=== PATIENT | female | born 1995 | race Caucasian/White ===

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

== ENCOUNTER 2017-05-16 00:20 | Emergency (ER) | payer BC ==
[~2017-05-16] VITALS: Ht 165.1 cm; Wt 47.0 kg
[2017-05-16 00:24] VITALS: TEMP 36.7; Ht 165.1 cm; Wt 47.0 kg
[2017-05-16] MEDS ORDERED: MoRPHine SULFATE 4 MG/ML 1 ML CARP\\VIAL IV ONE (01:00)
[2017-05-16 01:20] LABS: BASO % 0.4 %; BASO ABS # 0.04 K/uL (0-0.2); COMPLETE YES; EOS % 1.5 %; HEMATOCRIT 36.7 % (37-47); IG% 0.1 %; LYMPH % 27.7 %; LYMPH ABS # 2.65 K/uL (1.2-3.4); MEAN CELL VOLUME 78.9 fL (80-100); MEAN CORPUSCULAR HEMOGLOBIN 26.5 pg (25-34); MEAN CORPUSCULAR HGB CONC 33.5 g/dl (32-36); MEAN PLATELET VOLUME 9.7 fL (7.4-10.4); MONO % 8.2 %; NEUT % 62.1 %; PLATELET COUNT 217 K/uL (130-400); RED BLOOD COUNT 4.65 M/uL (4.2-5.4); WHITE BLOOD COUNT 9.56 K/uL (4.8-10.8)
[2017-05-16] MEDS: ONDANSETRON INJ 2 MG/ML 2 ML VIAL IV STA ×2 (01:28→01:32)
[2017-05-16 01:35] LABS: URINE APPEARANCE CLEAR (CLEAR); URINE BILIRUBIN NEG (NEG); URINE COLOR YELLOW; URINE NITRITE NEG (NEG); URINE SPECIFIC GRAVITY 1.008 (1.000-1.030); UROBILINOGEN NEG (NEG); ZZUR CULT IF INDIC CLEAN CATCH NO
[2017-05-16 01:37] LABS: BUN/CREATININE RATIO 12.5 (10-20); CALCIUM 8.9 mg/dl (8.5-10.1); CREATININE 0.68 mg/dl (0.60-1.20); POTASSIUM 3.6 mmol/L (3.5-5.1)
[2017-05-16 01:38] LABS: MANUAL MICROSCOPIC REQUIRED? NO; REVIEW REQ? NO
[2017-05-16 01:40] LABS: ALB/GLOB RATIO 1.2 (0.9-2)
[2017-05-16] MEDS ORDERED: MAGNESIUM CITRATE 296 ML/BTL PO ONE (04:15)
[2017-05-16 04:23] VITALS: BP 107/84; PULSE 69; O2SAT 96
--- NOTE | 2017-05-16 07:01 | DIAGNOSTIC IMAGING REPORT ---
ABDOMEN 2VIEW W/PA CHEST RTN HISTORY: 22 years-old Female Left side abd pain acute left-sided abdominal pain COMPARISON: None available TECHNIQUE: PA view of the chest with erect and supine views of the abdomen FINDINGS: Cardiomediastinal and hilar silhouettes are within normal limits. There is no pneumothorax, pleural effusion, focal airspace consolidation or overt pulmonary edema. The bones of the chest are grossly intact. No pneumoperitoneum on the upright projection. The bowel gas pattern is nonobstructive. Mild/moderate stool volume throughout the colon. No urolith or organomegaly. Bones of the abdomen appear unremarkable and intact. IMPRESSION: Unremarkable acute abdominal series radiographs. The above report was generated using voice recognition software. It may contain grammatical, syntax or spelling errors. Electronically signed by: Joel Smith M.D. 05/16/2017 7:00 AM Dictated Date/Time: 05/16/2017 6:58 AM
--- NOTE | 2017-05-16 07:03 | DIAGNOSTIC IMAGING REPORT ---
PELVIC ULTRASOUND CLINICAL HISTORY: Left lower quadrant abdominal pain. COMPARISON STUDY: Pelvic ultrasound March 20, 2016. TECHNIQUE: Transabdominal sonography of the pelvis was performed. Transvaginal imaging was deferred in this patient. FINDINGS: The uterus measures 6.7 x 2.8 x 3.5 cm. Endometrium measures 5 mm in thickness. The right ovary measures 3 x 1.5 x 2.4 cm and the left measures 2.9 x 1.7 x 2.5 cm. Color flow is identified within each ovary. There was no free fluid. IMPRESSION: Normal transabdominal pelvic ultrasound. Electronically signed by: Madi Colby M.D. 05/16/2017 7:02 AM Dictated Date/Time: 05/16/2017 7:00 AM
--- NOTE | 2017-05-16 22:26 | EMERGENCY ROOM VISIT NOTE ---
History First contact with patient: 00:40 Chief Complaint: OTHER COMPLAINT Stated Complaint: VAGINAL PAIN,DIZZINESS,NAUSEA History of Present Illness The patient is a 22 year old female who presents to the Emergency Room with complaints of left-sided abdominal and lower pelvic pain this slowly been worsening over the past 3-4 days. The patient does not have a history of abdominal surgery. She is not sexually active. She has been eating and drinking as normal. No fever or chills. Her discomfort may worsen slightly after eating does not radiate. She has had small bowel movements. No dysuria. The patient has not had similar symptoms in the past and rates her current discomfort a 5/10. She denies chance of . Review of Systems More than 10 systems were reviewed and otherwise negative with the exception of history of present illness. Past Medical/Surgical History Medical Problems: (1) Irregular periods/menstrual cycles Family History No pertinent family history Social History Smoking Status: Never Smoker Alcohol Use: none Drug Use: none Marital Status: single Housing Status: lives with roommate Occupation Status: [employer] Current/Historical Medications No Active Prescriptions or Reported Meds Physical Exam Vital Signs Date Time Temp Pulse Resp B/P (MAP) Pulse Ox O2 Delivery O2 Flow Rate FiO2 05/16/17 04:23 69 18 107/84 96 Room Air 05/16/17 02:22 44 18 112/79 100 Room Air 05/16/17 01:28 51 16 104/54 100 Room Air 05/16/17 00:24 36.7 63 18 113/75 99 Room Air Physical Exam VITALS: Vitals are noted on the nurse's note and reviewed by myself. Vital signs stable. GENERAL: Well-developed, well-nourished, female, who is in no acute distress and resting comfortably. Patient is cooperative with the examination. NECK: Supple without nuchal rigidity. No lymphadenopathy. No thyromegaly. Cervical spine is nontender. HEART: Regular rate and rhythm without murmurs gallops or rubs. LUNGS: Clear to auscultation bilaterally without wheezes, rales or rhonchi. No retractions or accessory muscle use. ABDOMEN: Positive normal bowel sounds x 4. Soft with mild left-sided abdominal tenderness MUSCULOSKELETAL: No muscle atrophy, erythema, or edema noted. Full range of motion without joint tenderness in all extremities. Medical Decision & Procedures ER Provider Diagnostic Interpretation: PELVIC ULTRASOUND CLINICAL HISTORY: Left lower quadrant abdominal pain. COMPARISON STUDY: Pelvic ultrasound March 20, 2016. TECHNIQUE: Transabdominal sonography of the pelvis was performed. Transvaginal imaging was deferred in this patient. FINDINGS: The uterus measures 6.7 x 2.8 x 3.5 cm. Endometrium measures 5 mm in thickness. The right ovary measures 3 x 1.5 x 2.4 cm and the left measures 2.9 x 1.7 x 2.5 cm. Color flow is identified within each ovary. There was no free fluid. IMPRESSION: Normal transabdominal pelvic ultrasound. ABDOMEN 2VIEW W/PA CHEST RTN HISTORY: 22 years-old Female Left side abd pain acute left-sided abdominal pain COMPARISON: None available TECHNIQUE: PA view of the chest with erect and supine views of the abdomen FINDINGS: Cardiomediastinal and hilar silhouettes are within normal limits. There is no pneumothorax, pleural effusion, focal airspace consolidation or overt pulmonary edema. The bones of the chest are grossly intact. No pneumoperitoneum on the upright projection. The bowel gas pattern is nonobstructive. Mild/moderate stool volume throughout the colon. No urolith or organomegaly. Bones of the abdomen appear unremarkable and intact. IMPRESSION: Unremarkable acute abdominal series radiographs. Laboratory Results 05/16/17 01:00 Red Blood Count 4.65, Mean Corpuscular Volume 78.9, Mean Corpuscular Hemoglobin 26.5, Mean Corpuscular Hemoglobin Concent 33.5, Mean Platelet Volume 9.7, Neutrophils (%) (Auto) 62.1, Lymphocytes (%) (Auto) 27.7, Monocytes (%) (Auto) 8.2, Eosinophils (%) (Auto) 1.5, Basophils (%) (Auto) 0.4, Neutrophils # (Auto) 5.94, Lymphocytes # (Auto) 2.65, Monocytes # (Auto) 0.78, Eosinophils # (Auto) 0.14, Basophils # (Auto) 0.04 05/16/17 01:00 Test 05/16/17 00:30 05/16/17 01:00 Urine Color YELLOW Urine Appearance CLEAR (CLEAR) Urine pH 7.0 (4.5-7.5) Urine Specific [place] 1.008 (1.000-1.030) Urine Protein NEG (NEG) Urine Glucose (UA) NEG (NEG) Urine Ketones NEG (NEG) Urine Occult Blood NEG (NEG) Urine Nitrite NEG (NEG) Urine Bilirubin NEG (NEG) Urine Urobilinogen NEG (NEG) Urine Leukocyte Esterase NEG (NEG) Urine Test NEG (NEG) White Blood Count 9.56 K/uL (4.8-10.8) Red Blood Count 4.65 M/uL (4.2-5.4) Hemoglobin 12.3 g/dL (12.0-16.0) Hematocrit 36.7 % (37-47) Mean Corpuscular Volume 78.9 fL (80-100) Mean Corpuscular Hemoglobin 26.5 pg (25-34) Mean Corpuscular Hemoglobin Concent 33.5 g/dl (32-36) Platelet Count 217 K/uL (130-400) Mean Platelet Volume 9.7 fL (7.4-10.4) Neutrophils (%) (Auto) 62.1 % Lymphocytes (%) (Auto) 27.7 % Monocytes (%) (Auto) 8.2 % Eosinophils (%) (Auto) 1.5 % Basophils (%) (Auto) 0.4 % Neutrophils # (Auto) 5.94 K/uL (1.4-6.5) Lymphocytes # (Auto) 2.65 K/uL (1.2-3.4) Monocytes # (Auto) 0.78 K/uL (0.11-0.59) Eosinophils # (Auto) 0.14 K/uL (0-0.5) Basophils # (Auto) 0.04 K/uL (0-0.2) RDW Standard Deviation 39.2 fL (36.4-46.3) RDW Coefficient of Variation 13.8 % (11.5-14.5) Immature Granulocyte % (Auto) 0.1 % Immature Granulocyte # (Auto) 0.01 K/uL (0.00-0.02) Anion Gap 6.0 mmol/L (3-11) Est Creatinine Clear Calc Drug Dose 97.9 ml/min Estimated GFR () 145.9 Estimated GFR (Non- 125.9 BUN/Creatinine Ratio 12.5 (10-20) Calcium Level 8.9 mg/dl (8.5-10.1) Total Bilirubin 0.3 mg/dl (0.2-1) Aspartate Amino Transf (AST/SGOT) 20 U/L (15-37) Alanine Aminotransferase (ALT/SGPT) 21 U/L (12-78) Alkaline Phosphatase 69 U/L (45-117) Total Protein 7.6 gm/dl (6.4-8.2) Albumin 4.1 gm/dl (3.4-5.0) Globulin 3.5 gm/dl (2.5-4.0) Albumin/Globulin Ratio 1.2 (0.9-2) Lipase 163 U/L (73-393) Medications Administered Medications (Trade) Dose Ordered Sig/Sandoval Route Start Time Stop Time Status Last Admin Dose Admin Magnesium Citrate (Citrate Of Magnesia Soln) 296 ml NOW ONCE PO 05/16/17 04:15 05/16/17 04:16 DC 05/16/17 04:17 296 ML ED Course Physical exam and history were performed. Nursing notes, EMR, and Medication List were personally reviewed. Patient appears to have left-sided abdominal discomfort slowly worsening over the past several days. The patient does not appear toxic on examination. She is not and has never been sexually active. IV access was established and labs were obtained. Elected to perform ultrasound and plain films to start with. The patient's blood work is as above and was reviewed. She does not have a significantly elevated white blood cell count, dyspnea, bandemia, or significant electrolyte imbalance. Her urine is without obvious signs of infection. Pelvic ultrasound is unremarkable. X-ray shows mild to moderate stool, which certainly may be driven into her symptoms. On reevaluation the patient continued to be comfortable and in no acute distress. Repeat abdominal exam was without signs of a surgical abdomen. At this point do not feel CT scan is necessary, as her symptoms seem to be related to the constipation. The patient will be given a bottle of magnesium citrate to try in the morning. She is to follow with her primary care physician in the next few days and was otherwise invited back to the ER with any new, worsening, or concerning symptoms. The chart was completed utilizing [employer] Speech Voice Recognition Software. Grammatical errors, random word insertions, pronoun errors, and incomplete sentences are an occasional consequence of this system due to software limitations, ambient noise, and hardware issues. Any formal questions or concerns about the content, text, or information contained within the body of this dictation should be directly addressed to the provider for clarification. . Medical Decision Differential diagnosis: Etiologies such as constipation, appendicitis, diverticulitis, PUD, biliary pathology, UTI, pancreatitis, obstruction, mesenteric ischemia, aortic pathology , infections, inflammatory bowel disease, renal colic, as well as others were entertained. Impression Primary Impression: Left sided abdominal pain Departure Information Dispostion Still a Patient Condition GOOD Prescriptions No Active Prescriptions or Reported Meds Forms HOME CARE DOCUMENTATION FORM, IMPORTANT VISIT INFORMATION Patient Instructions [facility] Additional Instructions You were seen and evaluated today on an emergency basis only. This is not a substitute for, or an effort to provide, complete comprehensive medical care. It is not possible to recognize and treat all injuries or illnesses in a single emergency department visit. For this reason it is recommended that you followup with [facility] or your primary care physician this week for ongoing care and evaluation. Drink plenty of fluids and remain well hydrated. Use magnesium citrate. Drink one half the bottle, wait one hour, and drink the other half. Drink this with plenty of fluids as it will help cause a bowel movement. You are welcome to return to the emergency department anytime with new, worsening, or concerning symptoms.
== END 2017-05-16 04:20 | disposition still patient (30) ==
LOC: C.EDB 00:22 → C.EDA 04:20
DX: R10.9 Unspecified abdominal pain (principal); K59.00 Constipation, unspecified

== ENCOUNTER 2017-05-16 19:45 | Emergency (ER) | payer BC ==
[~2017-05-16] VITALS: Ht 165.1 cm; Wt 55.2 kg
[2017-05-16 20:06] VITALS: TEMP 36.9; Ht 165.1 cm; Wt 55.2 kg
[2017-05-16] MEDS ORDERED: ONDANSETRON INJ 2 MG/ML 2 ML VIAL IV STA (21:33)
[2017-05-16] MEDS ORDERED: OPTIRAY 320 IV PRN (21:45)
[2017-05-16 22:08] LABS: URINE APPEARANCE CLEAR (CLEAR); URINE BILIRUBIN NEG (NEG); URINE COLOR YELLOW; URINE NITRITE NEG (NEG); URINE PH 8.5 (4.5-7.5); URINE SPECIFIC GRAVITY 1.006 (1.000-1.030); UROBILINOGEN NEG (NEG); ZZUR CULT IF INDIC CLEAN CATCH NO
[2017-05-16 22:09] LABS: BASO % 0.5 %; BASO ABS # 0.04 K/uL (0-0.2); COMPLETE YES; EOS % 1.3 %; HEMATOCRIT 38.5 % (37-47); IG% 0.2 %; LYMPH % 26.8 %; LYMPH ABS # 2.21 K/uL (1.2-3.4); MEAN CORPUSCULAR HEMOGLOBIN 26.2 pg (25-34); MEAN CORPUSCULAR HGB CONC 32.7 g/dl (32-36); MEAN PLATELET VOLUME 9.6 fL (7.4-10.4); MONO % 7.6 %; NEUT % 63.6 %; PLATELET COUNT 202 K/uL (130-400); RED BLOOD COUNT 4.81 M/uL (4.2-5.4); WHITE BLOOD COUNT 8.25 K/uL (4.8-10.8)
[2017-05-16 22:10] LABS: MANUAL MICROSCOPIC REQUIRED? NO; REVIEW REQ? YES
[2017-05-16 22:39] LABS: ALB/GLOB RATIO 1.1 (0.9-2); BUN/CREATININE RATIO 8.8 (10-20); CALCIUM 9.4 mg/dl (8.5-10.1); CREATININE 0.69 mg/dl (0.60-1.20); POTASSIUM 3.5 mmol/L (3.5-5.1)
[2017-05-17 01:07] VITALS: BP 91/58
[2017-05-17 01:15] VITALS: PULSE 59; O2SAT 99
--- NOTE | 2017-05-17 07:37 | DIAGNOSTIC IMAGING REPORT ---
CT SCAN OF THE ABDOMEN AND PELVIS WITH IV CONTRAST CLINICAL HISTORY: Left-sided abdominal pain. Constipation. COMPARISON STUDY: Abdominal radiographs dated 05/16/2017. TECHNIQUE: Following the IV administration of 93 cc of Optiray 320, CT scan of the abdomen and pelvis is performed from the lung bases to the proximal femora. Images are reviewed in the axial, sagittal, and coronal planes. IV contrast was administered without complication. A dose lowering technique was utilized adhering to the principles of ALARA. CT DOSE: 269.07 mGy.cm FINDINGS: Lung bases: The heart is normal in size and without pericardial effusion. The lung bases are clear. Liver: The contrast-enhanced liver is normal in size, contour, and attenuation. There is no intrahepatic biliary ductal dilatation. The hepatic veins and portal veins are patent. Gallbladder: Unremarkable. Spleen: Normal in size and attenuation. Pancreas: Unremarkable. Adrenal glands: Unremarkable. Kidneys: The contrast enhanced kidneys are normal in size and without hydronephrosis. The kidneys enhance symmetrically. Abdominal vasculature: The abdominal aorta is normal in course and caliber. Bowel: Liquid stool is seen throughout the colon. There is no colonic wall thickening or pericolonic infiltration. No bowel obstruction is seen. The appendix is well-visualized and normal. Peritoneum: There is no intraperitoneal free air or abdominal ascites. Lymphadenopathy: None. Pelvic viscera: The bladder, uterus, and adnexa are normal as visualized. There are bilateral ovarian follicles. Skeletal structures: No lytic or blastic lesions are seen. IMPRESSION: Liquid stool is seen throughout the colon. There is no colonic wall thickening or pericolonic inflammation. Correlate clinically for evidence of a diarrheal illness. Electronically signed by: Bill Garcia M.D. 05/17/2017 7:36 AM Dictated Date/Time: 05/17/2017 7:10 AM
--- NOTE | 2017-05-17 21:07 | EMERGENCY ROOM VISIT NOTE ---
History First contact with patient: 21:26 Chief Complaint: CONSTIPATION Stated Complaint: CONSTIPATION AFTER LAXAXTIVE, ABD PAIN Nursing Triage Summary: Patient ambulatory to triage with an upright and steady gait, states "I came in yesterday because I had lower abdominal and pelvic pain. They said that I was constipated. I was supposed to take Magnesium Citrate but it didn't work. I had a little bit of diarrhea and a small BM this morning but nothing else. I have a little bit of nausea. I had no appetite today." History of Present Illness The patient is a 22 year old female who presents to the Emergency Room with complaints of ongoing left-sided abdominal pain. The patient was found to have constipation on plain films with otherwise normal blood work and pelvic ultrasound. The patient states that she went home, took magnesium citrate, and had a small bowel movement. The patient is slightly nauseated with decreased appetite. She continues with her abdominal discomfort. She is not on anything additional [id number]. She has not had fever or chills. She rates her discomfort a 6/10. Review of Systems More than 10 systems were reviewed and otherwise negative with the exception of history of present illness. Past Medical/Surgical History Medical Problems: (1) Irregular periods/menstrual cycles Family History No pertinent family history Social History Smoking Status: Never Smoker Alcohol Use: none Drug Use: none Marital Status: single Housing Status: lives with roommate Occupation Status: [employer] Current/Historical Medications No Active Prescriptions or Reported Meds Physical Exam Vital Signs Date Time Temp Pulse Resp B/P (MAP) Pulse Ox O2 Delivery O2 Flow Rate FiO2 05/17/17 01:15 59 16 99 05/17/17 01:07 91/58 05/17/17 00:30 60 103/59 99 05/17/17 00:25 52 103/66 99 05/16/17 23:55 58 99 05/16/17 23:50 98/42 05/16/17 23:37 56 16 100 05/16/17 23:22 55 99 05/16/17 23:07 55 100 05/16/17 23:02 54 16 89/51 100 05/16/17 21:59 59 16 103/56 99 Room Air 05/16/17 20:06 36.9 53 16 101/65 99 Room Air Physical Exam VITALS: Vitals are noted on the nurse's note and reviewed by myself. Vital signs stable. GENERAL: Well-developed, well-nourished, female, who is in no acute distress and resting comfortably. Patient is cooperative with the examination. HEART: Regular rate and rhythm without murmurs gallops or rubs. LUNGS: Clear to auscultation bilaterally without wheezes, rales or rhonchi. No retractions or accessory muscle use. ABDOMEN: Positive normal bowel sounds x 4. Soft with left-sided abdominal tenderness on palpation. No rebound or guarding. MUSCULOSKELETAL: No muscle atrophy, erythema, or edema noted. Full range of motion without joint tenderness in all extremities. Medical Decision & Procedures ER Provider Diagnostic Interpretation: Preliminary Findings Only See Final Report For Complete Findings CT ABDOMEN & PELVIS With Contrast: Fluid throughout the colon may represent diarrheal state. Enteritis is not excluded. Oral contrast noted throughout the stomach and small bowel loops. No evidence of bowel obstruction or inflammation. Normal appendix. Distended bladder without wall thickening or mass. Laboratory Results 05/16/17 21:55 Red Blood Count 4.81, Mean Corpuscular Volume 80.0, Mean Corpuscular Hemoglobin 26.2, Mean Corpuscular Hemoglobin Concent 32.7, Mean Platelet Volume 9.6, Neutrophils (%) (Auto) 63.6, Lymphocytes (%) (Auto) 26.8, Monocytes (%) (Auto) 7.6, Eosinophils (%) (Auto) 1.3, Basophils (%) (Auto) 0.5, Neutrophils # (Auto) 5.24, Lymphocytes # (Auto) 2.21, Monocytes # (Auto) 0.63, Eosinophils # (Auto) 0.11, Basophils # (Auto) 0.04 05/16/17 21:55 Test 05/16/17 21:55 White Blood Count 8.25 K/uL (4.8-10.8) Red Blood Count 4.81 M/uL (4.2-5.4) Hemoglobin 12.6 g/dL (12.0-16.0) Hematocrit 38.5 % (37-47) Mean Corpuscular Volume 80.0 fL (80-100) Mean Corpuscular Hemoglobin 26.2 pg (25-34) Mean Corpuscular Hemoglobin Concent 32.7 g/dl (32-36) Platelet Count 202 K/uL (130-400) Mean Platelet Volume 9.6 fL (7.4-10.4) Neutrophils (%) (Auto) 63.6 % Lymphocytes (%) (Auto) 26.8 % Monocytes (%) (Auto) 7.6 % Eosinophils (%) (Auto) 1.3 % Basophils (%) (Auto) 0.5 % Neutrophils # (Auto) 5.24 K/uL (1.4-6.5) Lymphocytes # (Auto) 2.21 K/uL (1.2-3.4) Monocytes # (Auto) 0.63 K/uL (0.11-0.59) Eosinophils # (Auto) 0.11 K/uL (0-0.5) Basophils # (Auto) 0.04 K/uL (0-0.2) RDW Standard Deviation 40.5 fL (36.4-46.3) RDW Coefficient of Variation 14.0 % (11.5-14.5) Immature Granulocyte % (Auto) 0.2 % Immature Granulocyte # (Auto) 0.02 K/uL (0.00-0.02) Urine Color YELLOW Urine Appearance CLEAR (CLEAR) Urine pH 8.5 (4.5-7.5) Urine Specific [place] 1.006 (1.000-1.030) Urine Protein NEG (NEG) Urine Glucose (UA) NEG (NEG) Urine Ketones NEG (NEG) Urine Occult Blood NEG (NEG) Urine Nitrite NEG (NEG) Urine Bilirubin NEG (NEG) Urine Urobilinogen NEG (NEG) Urine Leukocyte Esterase TRACE (NEG) Urine WBC (Auto) 1-5 /hpf (0-5) Urine RBC (Auto) 0-4 /hpf (0-4) Urine Hyaline Casts (Auto) 0 /lpf (0-5) Urine Epithelial Cells (Auto) 5-10 /lpf (0-5) Urine Bacteria (Auto) NEG (NEG) Urine Test NEG (NEG) Anion Gap 7.0 mmol/L (3-11) Est Creatinine Clear Calc Drug Dose 113.3 ml/min Estimated GFR () 145.2 Estimated GFR (Non- 125.3 BUN/Creatinine Ratio 8.8 (10-20) Calcium Level 9.4 mg/dl (8.5-10.1) Total Bilirubin 0.6 mg/dl (0.2-1) Aspartate Amino Transf (AST/SGOT) 17 U/L (15-37) Alanine Aminotransferase (ALT/SGPT) 19 U/L (12-78) Alkaline Phosphatase 60 U/L (45-117) Total Protein 7.7 gm/dl (6.4-8.2) Albumin 4.1 gm/dl (3.4-5.0) Globulin 3.6 gm/dl (2.5-4.0) Albumin/Globulin Ratio 1.1 (0.9-2) Lipase 119 U/L (73-393) Medications Administered Medications (Trade) Dose Ordered Sig/Sandoval Route Start Time Stop Time Status Last Admin Dose Admin Ondansetron HCl (Zofran Inj) 4 mg NOW STAT IV 05/16/17 21:33 05/16/17 21:35 DC 05/16/17 22:05 4 MG ED Course Physical exam and history were performed. Nursing notes, EMR, and Medication List were personally reviewed. Patient appears to have left-sided abdominal pain for the past few days. Patient was seen last night by myself where she had some constipation on plain films. She did have normal blood work and ultrasound at that time. The patient now returns saying that she did not have relief with magnesium citrate and bowel movement. Discuss operative care with the patient, and also did speak with the patient's family. We elected to recheck blood work and perform a CT scan. The patient's work is as above and was reviewed. She does not have a significantly elevated white blood cell count, gross anemia, bandemia, or significant electrolyte imbalance. Lipase and transaminases are nondiagnostic. CT scan with IV and oral contrast is as above and does not show evidence of acute process. I did discuss the case with my attending physician, Dr. Parrish, and overall he feels patient is safe for discharge home. The patient will be asked to follow with her primary care physician or urologist for further care and management. She is otherwise welcome back to the ER if any new, worsening, or concerning symptoms. The chart was completed utilizing [employer] Speech Voice Recognition Software. Grammatical errors, random word insertions, pronoun errors, and incomplete sentences are an occasional consequence of this system due to software limitations, ambient noise, and hardware issues. Any formal questions or concerns about the content, text, or information contained within the body of this dictation should be directly addressed to the provider for clarification. . Medical Decision Differential diagnosis: Etiologies such as appendicitis, diverticulitis, PUD, biliary pathology, UTI, pancreatitis, obstruction, mesenteric ischemia, aortic pathology, infections, inflammatory bowel disease, renal colic, as well as others were entertained. Impression Primary Impression: Left sided abdominal pain Departure Information Dispostion Home / Self-Care Condition GOOD Prescriptions No Active Prescriptions or Reported Meds Referrals Eladia Norris M.D. (PCP) Forms HOME CARE DOCUMENTATION FORM, IMPORTANT VISIT INFORMATION Patient Instructions My [facility] Additional Instructions You were seen and evaluated today on an emergency basis only. This is not a substitute for, or an effort to provide, complete comprehensive medical care. It is not possible to recognize and treat all injuries or illnesses in a single emergency department visit. For this reason it is recommended that you followup with [facility] this week for ongoing care and evaluation. For baseline pain relief you may alternate ibuprofen and acetaminophen every 4 hours for pain control. Take 600 mg ibuprofen (Advil) and then 4 hours later take 1000 mg acetaminophen (Tylenol). Do not take more than 3000 mg acetaminophen in a single day. Drink plenty of fluids and remain well hydrated You are welcome to return to the emergency department anytime with new, worsening, or concerning symptoms.
== END 2017-05-17 01:32 | disposition home or self-care (01) ==
LOC: C.EDB 19:46
DX: R10.12 Left upper quadrant pain (principal); R10.32 Left lower quadrant pain; K59.00 Constipation, unspecified

== ENCOUNTER → 2017-09-09 | Outpatient (CLI) | payer BC ==
--- NOTE | 2017-09-09 15:04 | MAMMOGRAPHY REPORT ---
ULTRASOUND OF LEFT BREAST: 09/09/2017 CLINICAL HISTORY: Patient reports left breast pain which is greatest before and during her period. S he also reports that her doctor felt a palpable lump during a clinical exam. The provider order stat es that there is a 3 mm nodule in the left breast at 7:00. COMPARISON: No prior exams were available for comparison. TECHNIQUE: Real-time targeted ultrasound of the left breast was performed. FINDINGS: Real-time, high-resolution targeted ultrasound was performed at the site of the palpable evette mp described by the ordering provider, at 7:00. The patient cannot pinpoint the location of the lump . Therefore, ultrasound was performed of the entire 7:00 left breast, which shows sonographically no rmal tissue without evidence of a mass or other suspicious sonographic abnormality. Ultrasound was a lso performed of an area of pain pointed out by the patient in the left upper outer quadrant at 2:00. Sonographically normal tissue is also seen in this region, without evidence of a mass or other susp icious sonographic abnormality. IMPRESSION: ACR BI-RADS CATEGORY 1: NEGATIVE No suspicious sonographic abnormality in the left 7:00 breast at the site of a palpable lump reported by the referring provider; note that the patient could not pinpoint the location of the lump. No so nographic abnormality at the site of left breast pain pointed out by the patient. There is no sonogr aphic evidence of malignancy. Recommend clinical follow-up for left breast lump and pain. The patie nt was verbally notified of the results. Mae Cody M.D. ah/:09/09/2017 10:10:02 Svp Group Director: Mae Cody MD, [facility] letter sent: Normal 1/2 BI-RADS Code: ACR BI-RADS Category 1: Negative
== END | disposition home or self-care (01) ==
LOC: C.MAMM 09:51
PROVIDERS: ATTEND Nurse Practitioner Women's Health
DX: N63.20 Unspecified lump in the left breast, unspecified quadrant (principal)